=== PATIENT | male | born 1965 | race Caucasian/White ===

== ENCOUNTER 2017-02-20 12:18 | Emergency (ER) | payer MEDICAID ==
[~2017-02-20] VITALS: Ht 175.3 cm; Wt 136.1 kg
[2017-02-20 13:05] LABS: Basophils # (auto) 0 uL; Basophils % (auto) 0.6 % (0.0-2.0); CONDITION Y; Eosinophils # (auto) 0 uL; Eosinophils % (auto) 0.3 % (0.0-7.0); Hematocrit 49.2 % (41.0-53.0); Hemoglobin 17.3 g/dL (13.5-17.5); Lymphocytes # (auto) 1.1 uL; Lymphocytes % (auto) 20.2 % (10.0-50.0); Mean Corpuscular Hgb Conc. 35.2 g/dL (32.0-36.0); Mean Corpuscular Volume 96.5 fL (80.0-100.0); Mean Platelet Volume 8.9 fL (7.4-10.4); Monocytes # (auto) 0.4 uL; Neutrophils # (auto) 3.8 uL; Neutrophils % (auto) 70.9 % (37.0-80.0); Platelet Count (auto) 215 10^3/uL (140-450); Red Cell Distribution Width 15.3 % (11.6-16.0); White Blood Cell 5.4 10^3/uL (4.4-10.8)
[2017-02-20 13:26] LABS: Albumin 4.3 g/dL (3.4-5.0); BUN/Creatinine Ratio 11.3; Calcium 8.1 mg/dL (8.5-10.1); Potassium 3.5 mmol/L (3.5-5.1)
[2017-02-20 13:29] LABS: Bilirubin, Total 1.1 mg/dL (0.2-1.0); Total Protein 7.8 g/dL (6.4-8.2)
[2017-02-20] MEDS ORDERED: SODIUM CHLORIDE 0.9% 2,000 ML IV ONE (16:45)
[2017-02-20] MEDS ORDERED: THIAMINE INJ 100 MG, MULTIPLE VITAMIN 10 ML, FOLIC ACID 1 MG, MAGNESIUM SULF SDV 50% 8 ... IV SCH ×5 (17:15)
[2017-02-20] MEDS ORDERED: ONDANSETRON HCL 4 MG/2 ML VIAL IV ONE (17:45)
[2017-02-20 19:46] LABS: Urine Bilirubin Negative (Negative); Urine Blood TRACE /uL (Negative); Urine Color Yellow (Yellow); Urine Glucose Normal (Normal); Urine Hyaline Cast FEW /lpf (0 - 2); Urine Mucus FEW (None Seen); Urine Nitrite Negative (Negative); Urine RBC 1 /hpf (0 - 3); Urine pH 6.5 (5.0-8.0)
[2017-02-20 19:47] LABS: Urine Ketone 2+ (Negative)
[2017-02-21] MEDS ORDERED: FAMOTIDINE 20 MG TAB PO ONE (03:45)
[2017-02-21] MEDS ORDERED: ONDANSETRON ODT 4 MG TAB PO ONE (03:45)
[2017-02-21] MEDS ORDERED: cloNIDine HCL 0.1 MG TAB PO ONE (06:30)
[2017-02-21 10:11] VITALS: BP 135/83
== END 2017-02-21 09:47 | disposition home or self-care (01) ==
LOC: ER 12:18 → EDBD 12:18 → ER 02-21 09:47
DX: F10.129 Alcohol abuse with intoxication, unspecified (principal); F32.9 Major depressive disorder, single episode, unspecified; R45.851 Suicidal ideations; F17.210 Nicotine dependence, cigarettes, uncomplicated; F41.9 Anxiety disorder, unspecified
CPT/HCPCS: 36415; 71010; 80053; 80307; 80320; 81001; 85025; 94761; 96361; 96365; 96366; 96375; 99285; J2405; J3411; J3475; J7030; Q0162

== ENCOUNTER 2017-03-10 08:21 | Emergency (ER) | payer MEDICAID ==
[~2017-03-10] VITALS: Ht 177.8 cm; Wt 127.0 kg
[2017-03-10 09:21] LABS: Basophils # (auto) 0 uL; Basophils % (auto) 0.5 % (0.0-2.0); CONDITION Y; Eosinophils # (auto) 0 uL; Eosinophils % (auto) 0.3 % (0.0-7.0); Hematocrit 46.5 % (41.0-53.0); Lymphocytes # (auto) 0.8 uL; Lymphocytes % (auto) 13.4 % (10.0-50.0); Mean Corpuscular Hemoglobin 33.9 pg (28.0-32.0); Mean Corpuscular Hgb Conc. 34.5 g/dL (32.0-36.0); Mean Corpuscular Volume 98.4 fL (80.0-100.0); Mean Platelet Volume 9.3 fL (7.4-10.4); Monocytes # (auto) 0.4 uL; Monocytes % (auto) 7.3 % (0.0-12.0); Neutrophils # (auto) 4.7 uL; Neutrophils % (auto) 78.5 % (37.0-80.0); Platelet Count (auto) 324 10^3/uL (140-450); Red Cell Distribution Width 15.8 % (11.6-16.0)
[2017-03-10 09:34] LABS: Albumin 3.9 g/dL (3.4-5.0); Anion Gap 15 (5-15); Aspartate Aminotransferase 79 U/L (15-37); BUN/Creatinine Ratio 10.5; Blood Urea Nitrogen 11 mg/dL (7-18); Calcium 7.4 mg/dL (8.5-10.1); Carbon Dioxide 19 mmol/L (21-32); Chloride 109 mmol/L (98-107); GFR African American 95 mL/min; GFR Non-African American 79 mL/min; Glucose 177 mg/dL (74-106); Magnesium 1.5 mg/dL (1.6-2.6); Potassium 3.2 mmol/L (3.5-5.1); Sodium 143 mmol/L (136-145)
[2017-03-10 09:40] LABS: Alkaline Phosphatase 101 U/L (45-117); Bilirubin, Total 0.7 mg/dL (0.2-1.0); Total Protein 7.4 g/dL (6.4-8.2)
[2017-03-10] MEDS ORDERED: SODIUM CHLORIDE 0.9% 1,000 ML IV ONE ×2 (10:45→15:00)
[2017-03-10] MEDS ORDERED: LORazepam 2MG/ML-1ML VIAL IV ONE (10:45)
[2017-03-10] MEDS ORDERED: THIAMINE INJ 100 MG, MULTIPLE VITAMIN 10 ML, FOLIC ACID 1 MG, MAGNESIUM SULF SDV 50% 8 ... IV SCH ×5 (12:00)
[2017-03-10 12:54] LABS: Urine Bilirubin Negative (Negative); Urine Blood 1+ /uL (Negative); Urine Color Yellow (Yellow); Urine Glucose Normal (Normal); Urine Hyaline Cast FEW /lpf (0 - 2); Urine Ketone Negative (Negative); Urine Mucus FEW (None Seen); Urine Nitrite Negative (Negative); Urine RBC <1 /hpf (0 - 3)
[2017-03-10] MEDS ORDERED: POTASSIUM CHL 10% (20 MEQ/15ML) ORAL SOLN PO ONE (13:30)
[2017-03-10 14:49] VITALS: BP 170/98
[2017-03-10] MEDS ORDERED: ONDANSETRON HCL 4 MG/2 ML VIAL IV ONE (15:00)
== END 2017-03-10 15:32 | disposition home or self-care (01) ==
LOC: ER 08:21
DX: F10.129 Alcohol abuse with intoxication, unspecified (principal); K29.20 Alcoholic gastritis without bleeding; E87.6 Hypokalemia; E83.42 Hypomagnesemia; R09.89 Other specified symptoms and signs involving the circulatory and respiratory systems; I10 Essential (primary) hypertension
CPT/HCPCS: 36415; 71010; 80053; 80307; 80320; 81001; 83735; 84484; 85025; 94761; 96365; 96366; 96375; 99285; J2060; J2405; J3411; J3475; J7030; 93005

== ENCOUNTER 2017-09-17 20:13 | Observation (INO) | payer MEDICAID ==
[~2017-09-17] VITALS: Ht 180.3 cm; Wt 136.1 kg
[2017-09-17 20:47] LABS: Basophils # (auto) 0 uL; Eosinophils # (auto) 0 uL; Eosinophils % (auto) 0.1 % (0.0-7.0); Hemoglobin 17.9 g/dL (13.5-17.5); Mean Corpuscular Volume 96.2 fL (80.0-100.0); Monocytes # (auto) 0.7 uL; Neutrophils # (auto) 3.9 uL; White Blood Cell 5.5 10^3/uL (4.4-10.8)
[2017-09-17 20:49] LABS: Basophils % (auto) 0.6 % (0.0-2.0); Hematocrit 50.5 % (41.0-53.0); Lymphocytes # (auto) 0.9 uL; Lymphocytes % (auto) 15.7 % (10.0-50.0); Mean Corpuscular Hemoglobin 34.2 pg (28.0-32.0); Mean Corpuscular Hgb Conc. 35.6 g/dL (32.0-36.0); Monocytes % (auto) 13.2 % (0.0-12.0); Neutrophils % (auto) 70.4 % (37.0-80.0); Nucleated Red Blood Cells % 0.3 %; Platelet Count (auto) 119 10^3/uL (140-450); Red Blood Cells 5.24 10^6/uL (4.5-5.90)
[2017-09-17 21:15] LABS: Alanine Aminotransferase 37 U/L (16-61); Alkaline Phosphatase 101 U/L (45-117); Anion Gap 17 (5-15); Aspartate Aminotransferase 71 U/L (15-37); BUN/Creatinine Ratio 28.4; Bilirubin, Total 0.7 mg/dL (0.2-1.0); Blood Urea Nitrogen 29 mg/dL (7-18); Carbon Dioxide 21 mmol/L (21-32); Chloride 99 mmol/L (98-107); GFR African American 99 mL/min; GFR Non-African American 82 mL/min; Glucose 139 mg/dL (74-106); Magnesium 2.8 mg/dL (1.6-2.6); Potassium 3.5 mmol/L (3.5-5.1); Sodium 137 mmol/L (136-145); Total Protein 7.9 g/dL (6.4-8.2)
[2017-09-17 21:58] LABS: Acetaminophen < 2.0 ug/mL (10-30); Salicylate 3.6 mg/dL (2.8-20.0)
[2017-09-17] MEDS ORDERED: SODIUM CHLORIDE 0.9% 1,000 ML IV ONE (22:00)
[2017-09-17] MEDS ORDERED: HYDROcodone-ACET 5/325MG TAB PO ONE (22:45)
[2017-09-18 00:44] LABS: Urine Bacteria NONE SEEN /hpf (None Seen); Urine Blood TRACE /uL (Negative); Urine Mucus FEW (None Seen); Urine Specific Gravity 1.026 (1.001-1.035); Urine WBC 2 /hpf (0 - 3)
[2017-09-18] MEDS ORDERED: LORazepam 2MG/ML-1ML VIAL IV ONE ×3 (00:45→13:15)
[2017-09-18 01:00] LABS: Amphetamine Screen, Urine NEGATIVE (NEGATIVE); Barbiturate Scree,Urine NEGATIVE (NEGATIVE); Benzodiazephine Screen, Urine NEGATIVE (NEGATIVE); Cannabinoid Screen, Urine NEGATIVE (NEGATIVE); Cocaine Screen, Urine NEGATIVE (NEGATIVE); Opiate Scree,Urine NEGATIVE (NEGATIVE); Phencyclidine Screen, Urine NEGATIVE (NEGATIVE)
[2017-09-18] MEDS ORDERED: SODIUM CHLORIDE 0.9% 500 ML IV ONE (01:15)
[2017-09-18] MEDS ORDERED: PROMETHAZINE HCL 25 MG/ML 1ML IV ONE (07:45)
[2017-09-18] MEDS: THIAMINE INJ 100 MG, MULTIPLE VITAMIN 10 ML, FOLIC ACID 1 MG, MAGNESIUM SULF SDV 50% 8 ... IV SCH ×5 (08:33)
[2017-09-18] MEDS ORDERED: SODIUM CHLORIDE 0.9% 1,000 ML IV ONE (13:15)
[2017-09-18] MEDS: ONDANSETRON HCL 4 MG/2 ML VIAL IV PRN (13:21)
[2017-09-18] MEDS ORDERED: chlordiazePOXIDE HCL 25 MG CAP PO ONE (13:30)
[2017-09-18] MEDS ORDERED: cloNIDine HCL 0.1 MG TAB ONE (14:59)
[2017-09-18] MEDS ORDERED: ONDANSETRON HCL 4 MG/2 ML VIAL ONE (15:04)
[2017-09-18] MEDS ORDERED: ONDANSETRON HCL 4 MG/2 ML VIAL IV ONE (15:15)
[2017-09-18] MEDS ORDERED: cloNIDine HCL 0.1 MG TAB PO ONE (15:15)
[2017-09-18] MEDS: chlordiazePOXIDE HCL 25 MG CAP PO SCH (18:08)
[2017-09-19] MEDS: chlordiazePOXIDE HCL 25 MG CAP PO SCH ×4 (06:00→17:44)
[2017-09-19] MEDS ORDERED: ALUM & MAG HYDROX-SIMETH LIQ(MAALOX) 30 ML PO ONE (21:15)
[2017-09-20] MEDS ORDERED: LORazepam 0.5 MG TAB PO ONE
[2017-09-20] MEDS: chlordiazePOXIDE HCL 25 MG CAP PO SCH ×3 (00:55→12:00)
[2017-09-20] MEDS: ONDANSETRON HCL 4 MG/2 ML VIAL IV PRN (05:37)
[2017-09-20] MEDS: THIAMINE INJ 100 MG, MULTIPLE VITAMIN 10 ML, FOLIC ACID 1 MG, MAGNESIUM SULF SDV 50% 8 ... IV SCH ×10 (07:31→12:00)
[2017-09-20 14:18] VITALS: BP 122/88
== END 2017-09-20 14:25 | disposition short-term general hospital (02) | DRG 756 ==
LOC: EDBD 20:13 → ER 20:26 → OVERFLOW 20:27 → ER 09-20 14:25
PROVIDERS: ADMIT Emergency Medicine; ATTEND Emergency Medicine
DX: R45.851 Suicidal ideations (principal); F33.1 Major depressive disorder, recurrent, moderate; I10 Essential (primary) hypertension; F41.9 Anxiety disorder, unspecified; F17.210 Nicotine dependence, cigarettes, uncomplicated; Z82.3 Family history of stroke; F10.24 Alcohol dependence with alcohol-induced mood disorder
CPT/HCPCS: 36415; 70450; 71045; 80053; 80307; 80320; 80329; 81001; 82962; 83735; 84443; 84484; 85025; 96361; 96365; 96366; 96375; 96376; 99285; G0378; J2060; J2405; J2550; J3411; J3475; J7030; J7070